=== PATIENT | female | born 1960 | race Caucasian/White ===

== ENCOUNTER 2021-12-21 09:29 | Day surgery (SDC) | payer OTHER ==
[~2021-12-21] VITALS: Ht 157.5 cm; Wt 71.7 kg
[2021-12-21] MEDS ORDERED: fentaNYL citrate 0.05 MG/ML VIAL ONE (12:03)
[2021-12-21] MEDS ORDERED: MIDAZOLAM 2 MG/2 ML VIAL ONE (12:04)
[2021-12-21] MEDS ORDERED: LIDOCAINE 2% 100 MG/5 ML UJET TP ONE (12:04)
[2021-12-21] MEDS ORDERED: MIDAZOLAM 2 MG/2 ML VIAL IVP ONE (13:55)
[2021-12-21] MEDS ORDERED: fentaNYL citrate 0.05 MG/ML VIAL IVP ONE (13:55)
== END 2021-12-21 13:23 | disposition home or self-care (01) ==
LOC: MDS 09:29 → MMU 09:38 → MDS 13:23
PROVIDERS: ATTEND Internal Medicine Gastroenterology
DX: Z12.11 Encounter for screening for malignant neoplasm of colon (principal); K21.9 Gastro-esophageal reflux disease without esophagitis; R10.13 Epigastric pain; K29.80 Duodenitis without bleeding; K29.70 Gastritis, unspecified, without bleeding; E78.00 Pure hypercholesterolemia, unspecified; J45.909 Unspecified asthma, uncomplicated; Z20.822 Contact with and (suspected) exposure to COVID-19; Z79.899 Other long term (current) drug therapy
CPT/HCPCS: 36415; 43239; 45378; 86677; 87426; J2250; J3010